=== PATIENT | male | born 1995 | race Caucasian/White ===

== ENCOUNTER 2025-01-18 14:35 | Inpatient (IN) | payer MEDICAID ==
[2025-01-18] MEDS: cefTRIAXone SOD 2 GM in DEXTROSE 5% (D5W) ADV/MINI-BAG 50 ML IV ONE (15:18)
[2025-01-18] MEDS: MORPHINE 2 MG/ML 1ML VIAL IV PRN (15:19)
[2025-01-18] MEDS: BOOSTRIX VACCINE (TETANUS/DIPHTH/ACEL. PERTUSSIS) 0.5ML SYR IM.IMMUN ONE (15:20)
[2025-01-18 15:22] LABS: HEMATOCRIT 49.5 % (42.0-52.0); HEMOGLOBIN 16.6 g/dl (13.5-17.5); MEAN CORPUSCULAR HGB CONC 33.5 g/dl (32.0-36.5); MEAN CORPUSCULAR VOLUME 95.4 fl (80.0-96.0); PLATELET COUNT, AUTOMATED 316 10^3/uL (150-450); RED BLOOD COUNT 5.19 10^6/uL (4.30-6.10); WHITE BLOOD COUNT 14.9 10^3/uL (4.0-10.0)
[2025-01-18 15:40] LABS: ETHYL ALCOHOL (ETHANOL) < 0.003 % (0.000-0.010); LIPASE 32 U/L (12-53)
[2025-01-18 15:42] LABS: ALBUMIN 3.9 G/DL (3.2-5.2); ALKALINE PHOSPHATASE 69 U/L (40-129); ALT/SGPT 36 U/L (7.0-40); AMYLASE 55 U/L (30-118); AST/SGOT 36 U/L (<34); BILIRUBIN,DIRECT 0.2 MG/DL (<0.4); BILIRUBIN,TOTAL 0.5 MG/DL (0.3-1.2); BLOOD UREA NITROGEN 17 MG/DL (9-23); CALCIUM LEVEL 9.2 MG/DL (8.5-10.1); CARBON DIOXIDE LEVEL 27 MMOL/L (20-31); CHLORIDE LEVEL 105 MMOL/L (98-107); CREATININE FOR GFR 0.91 MG/DL (0.70-1.30); GLOMERULAR FILTRATION RATE > 60.0 (>60); GLUCOSE, FASTING 186 MG/DL (60-100); POTASSIUM SERUM 4.3 MMOL/L (3.5-5.1); SODIUM LEVEL 141 MMOL/L (136-145); TOTAL PROTEIN 7.2 G/DL (5.7-8.2)
[2025-01-18 15:49] LABS: EOSINOPHILS 4 % (0-3); LYMPHOCYTES 47 % (16-44); MONOCYTES 4 % (0-5); NEUTROPHILS 45 % (28-66); PLATELET ESTIMATE NORMAL (NORMAL)
[2025-01-18] MEDS ORDERED: HOME MED LIST COMPLETE! XX SCH (16:35)
[2025-01-18] MEDS ORDERED: ONDANSETRON 4MG 2ML VIAL IV PRN (17:00)
[2025-01-18] MEDS ORDERED: EPIDURAL/PCA KEYS XX PRN (17:00)
[2025-01-18] MEDS ORDERED: NALOXONE INJ 0.4MG/1ML VIAL IV PRN (17:00)
[2025-01-18] MEDS ORDERED: diphenhydrAMINE 50MG/ML VIAL IV PRN (17:00)
[2025-01-18] MEDS: NS (Normal Saline) 0.9% 1,000 ML IV ONE (17:23)
[2025-01-18] MEDS: KETOROLAC 30 MG/ML 1ML VIAL IV SCH (18:29)
[2025-01-18] MEDS: ACETAMINOPHEN 500 MG TAB PO SCH (18:30)
[2025-01-18] MEDS: LR 1,000 ML IV ONE ×2 (19:00→21:40)
[2025-01-18] MEDS: MORPHINE 1MG/ML IN 0.9% NACL 100ML IV BAG IV PRN (22:23)
[2025-01-18] MEDS: NS (Normal Saline) 0.9% 1,000 ML IV SCH (22:24)
[2025-01-18 22:30] VITALS: BP 132/72; TEMP 97.7; O2SAT 97
[2025-01-18] MEDS: ceFAZolin SODIUM 2 GM in DEXTROSE 5% (D5W) ADV/MINI-BAG 50 ML IV SCH (23:36)
[2025-01-19] VITALS (7 sets, daily range): BP systolic 120–147; BP diastolic 74–90; TEMP 97.4–98; O2SAT 93–97
[2025-01-19] MEDS: NS (Normal Saline) 0.9% 1,000 ML IV ONE (00:07)
[2025-01-19 05:51] LABS: MEAN CORPUSCULAR HEMOGLOBIN 32.5 pg (27.0-33.0); MEAN CORPUSCULAR HGB CONC 33.9 g/dl (32.0-36.5); MEAN CORPUSCULAR VOLUME 95.8 fl (80.0-96.0); RED BLOOD COUNT 4.31 10^6/uL (4.30-6.10); WHITE BLOOD COUNT 11.7 10^3/uL (4.0-10.0)
[2025-01-19 06:09] LABS: HEMATOCRIT 41.3 % (42.0-52.0); PLATELET COUNT, AUTOMATED 212 10^3/uL (150-450)
[2025-01-19 06:20] LABS: THYROID STIMULATING HORMONE 2.658 uIU/ML (0.55-4.78)
[2025-01-19 06:22] LABS: BLOOD UREA NITROGEN 13 MG/DL (9-23); CALCIUM LEVEL 8.1 MG/DL (8.5-10.1); CARBON DIOXIDE LEVEL 25 MMOL/L (20-31); CHLORIDE LEVEL 108 MMOL/L (98-107); CHOLESTEROL LEVEL 98 MG/DL (<200); CHOLESTEROL RISK RATIO 2.76 (<5); CREATININE FOR GFR 0.81 MG/DL (0.70-1.30); GLOMERULAR FILTRATION RATE > 60.0 (>60); GLUCOSE, FASTING 95 MG/DL (60-100); HDL CHOLESTEROL 35.4 MG/DL (>40); LDL CHOLESTEROL 44.4 MG/DL (<100); NON-HDL-C 62.6 MG/DL; POTASSIUM SERUM 4.3 MMOL/L (3.5-5.1); SODIUM LEVEL 144 MMOL/L (136-145); TRIGLYCERIDES LEVEL 91 MG/DL (<150)
[2025-01-19 06:52] LABS: KETONE, URINE AUTO RFX NEGATIVE (NEGATIVE); LEUKOCYTE ESTERASE UR AUTO RFX NEGATIVE (NEGATIVE); MUCUS, URINE RFX SMALL (NEGATIVE); NITRITE, URINE AUTO RFX NEGATIVE (NEGATIVE); RBC, URINE AUTO RFX 0 /HPF (0-3); SQUAM EPITHELIAL CELL UR AURFX 0 /HPF (0-6); WBC, URINE AUTO RFX 2 /HPF (0-3)
[2025-01-19 07:02] LABS: HEMOGLOBIN A1c 4.7 % (4.0-6.0)
[2025-01-19 07:09] LABS: AMPHETAMINES LEVEL URINE NEGATIVE (NEGATIVE); BARBITURATES URINE NEGATIVE (NEGATIVE); BENZODIAZEPINES URINE NEGATIVE (NEGATIVE); CANNABINOIDS URINE NEGATIVE (NEGATIVE); COCAINE METABOLITE URINE NEGATIVE (NEGATIVE); METHADONE URINE NEGATIVE (NEGATIVE); PHENCYCLIDINE URINE NEGATIVE (NEGATIVE)
[2025-01-19 07:40] LABS: OPIATES URINE POSITIVE (NEGATIVE)
[2025-01-19] MEDS: D5W/0.45% SODIUM CHLORIDE 1,000 ML IV SCH (08:06)
[2025-01-19] MEDS ORDERED: propofoL 200 MG/20 ML VIAL As Ordered ONE (10:21)
[2025-01-19] MEDS ORDERED: LIDOCAINE 2% 100MG/5ML SDV (FOR ANES.) As Ordered ONE (10:21)
[2025-01-19] MEDS ORDERED: fentaNYL 250 MCG/5 ML INJECTION As Ordered ONE (10:22)
[2025-01-19] MEDS ORDERED: MIDAZOLAM INJ 2MG/2ML VIAL As Ordered ONE (10:22)
[2025-01-19] MEDS: ceFAZolin SODIUM 2 GM VIAL As Ordered ONE (12:40)
[2025-01-19] MEDS ORDERED: HYDROmorphone HCL 2MG/ML 1ML VIAL As Ordered ONE (12:47)
[2025-01-19] MEDS ORDERED: ACETAMINOPHEN 1000MG/100ML IV BAG As Ordered ONE (13:29)
[2025-01-19] MEDS ORDERED: KETOROLAC 30 MG/ML 1ML VIAL As Ordered ONE (13:33)
[2025-01-19] MEDS ORDERED: METOCLOPRAMIDE INJ 10MG/2ML VIAL As Ordered ONE (13:33)
[2025-01-19] MEDS ORDERED: ONDANSETRON 4MG 2ML VIAL As Ordered ONE (13:33)
[2025-01-19] MEDS ORDERED: DESFLURANE 240 ML INHALANT As Ordered ONE (13:59)
[2025-01-19] MEDS ORDERED: fentaNYL 100 MCG/2 ML INJECTION IV PRN (14:10)
[2025-01-19] MEDS ORDERED: MORPHINE 2 MG/ML 1ML VIAL IV PRN (14:10)
[2025-01-19] MEDS ORDERED: oxyCODONE 5MG TAB PO PRN (14:10)
[2025-01-19] MEDS ORDERED: ONDANSETRON 4MG 2ML VIAL IV PRN (14:10)
[2025-01-19] MEDS: PERCOCET 5MG/325MG TAB PO PRN (20:17)
[2025-01-20 00:10] VITALS: BP 142/76; TEMP 97.7; O2SAT 95
[2025-01-20 04:10] VITALS: BP 135/70; TEMP 98.2; O2SAT 95
[2025-01-20 06:34] LABS: HEMATOCRIT 39.8 % (42.0-52.0); HEMOGLOBIN 13.6 g/dl (13.5-17.5); MEAN CORPUSCULAR HEMOGLOBIN 32.4 pg (27.0-33.0); MEAN CORPUSCULAR HGB CONC 34.2 g/dl (32.0-36.5); MEAN CORPUSCULAR VOLUME 94.8 fl (80.0-96.0); PLATELET COUNT, AUTOMATED 243 10^3/uL (150-450); WHITE BLOOD COUNT 17.1 10^3/uL (4.0-10.0)
[2025-01-20 07:05] LABS: BLOOD UREA NITROGEN 10 MG/DL (9-23); CARBON DIOXIDE LEVEL 25 MMOL/L (20-31); CHLORIDE LEVEL 107 MMOL/L (98-107); CREATININE FOR GFR 0.73 MG/DL (0.70-1.30); GLOMERULAR FILTRATION RATE > 60.0 (>60); GLUCOSE, FASTING 117 MG/DL (60-100); POTASSIUM SERUM 4.2 MMOL/L (3.5-5.1); SODIUM LEVEL 142 MMOL/L (136-145)
[2025-01-20] MEDS ORDERED: PERCOCET PO (08:06)
[2025-01-20] MEDS ORDERED: MIRA3350 PO (08:06)
[2025-01-20] MEDS ORDERED: SENO8.6T10 PO (08:06)
[2025-01-20] MEDS ORDERED: IBUP-1114 PO (08:06)
[2025-01-20 08:07] VITALS: BP 107/61; TEMP 97.2; O2SAT 97
[2025-01-20] MEDS ORDERED: CEPH500T PO (08:08)
== END 2025-01-20 11:45 | disposition home or self-care (01) | DRG 315 ==
LOC: M ED 14:35 → M ED INP 16:55 → M MS5PR 21:00
PROVIDERS: ADMIT General Practice; ATTEND General Practice
PROC: 0PSH04Z Reposition Right Radius with Internal Fixation Device, Open Approach (ICD-10-PCS; principal; 2025-01-20)
DX: S52.302A Unspecified fracture of shaft of left radius, initial encounter for closed fracture (principal); E87.20 Acidosis, unspecified; F15.10 Other stimulant abuse, uncomplicated; G56.30 Lesion of radial nerve, unspecified upper limb; I10 Essential (primary) hypertension; S54.22XA Injury of radial nerve at forearm level, left arm, initial encounter; F17.200 Nicotine dependence, unspecified, uncomplicated; V09.29XA Pedestrian injured in traffic accident involving other motor vehicles, initial encounter; Z91.010 Allergy to peanuts

== ENCOUNTER → 2025-02-02 | Outpatient (CLI) | payer MEDICAID, SELFPAY ==
[~2025-02-02] MED LIST: CEPH500T PO; IBUP-1114 PO; MIRA3350 PO; PERCOCET PO; SENO8.6T10 PO
== END ==
LOC: M SOG 07:54
PROVIDERS: ATTEND Physician Assistant
DX: S52.302B Unspecified fracture of shaft of left radius, initial encounter for open fracture type I or II (principal); X58.XXXD Exposure to other specified factors, subsequent encounter; Z98.890 Other specified postprocedural states; Y92.9 Unspecified place or not applicable; Y93.9 Activity, unspecified; Y99.9 Unspecified external cause status